=== PATIENT | female | born 2000 | race Caucasian/White ===

== ENCOUNTER 2024-07-30 04:00 | Emergency (ER) | payer SELFPAY ==
[~2024-07-30] VITALS: Ht 154.9 cm; Wt 105.0 kg
[2024-07-30 04:06] VITALS: BP 117/78; RESP 17; TEMP 37.2; O2SAT 98
[2024-07-30 04:07] VITALS: PULSE 143; O2SAT 100
== END 2024-07-30 04:28 | disposition left against medical advice (07) ==
LOC: ER 04:00
DX: M79.89 Other specified soft tissue disorders (principal); Z53.21 Procedure and treatment not carried out due to patient leaving prior to being seen by health care provider